=== PATIENT | female | born 1950 | race Caucasian/White ===

== ENCOUNTER 2019-02-10 08:35 | Inpatient (IN) | payer BC ==
[~2019-02-10] VITALS: Ht 154.9 cm; Wt 35.8 kg
[~2019-02-10 08:35] MED LIST: ALBU90OI INH; AZIT250 PO; COMBIVENT RESPIM4 GM IH; DULERA 100 MCG/13 GM INH; HYDACE10B PO; NAPR500 PO; PRED10 PO; TIOT18 INH
[2019-02-10 09:20] LABS: BASOPHILS ABSOLUTE AUTO 0.08 K/mm3 (0.00-0.23); BASOPHILS PERCENT AUTO 0 % (0-2); EOSINOPHILS PERCENT AUTO 0 % (0-6); Hematocrit 40.1 % (33.0-51.0); Hemoglobin 13.7 g/dL (11.5-16.0); IMMATURE GRAN ABSOLUTE AUTO 0.09 K/mm3 (0.00-0.10); IMMATURE GRAN PERCENT AUTO 1 % (0-1); LYMPHOCYTES ABSOLUTE AUTO 0.96 K/mm3 (0.84-5.20); LYMPHOCYTES PERCENT AUTO 5 % (21-46); MONOCYTES ABSOLUTE AUTO 2.27 K/mm3 (0.16-1.47); MONOCYTES PERCENT AUTO 13 % (4-13); Mean Corpuscular HGB 33.7 pg (26.0-34.0); Mean Corpuscular HGB Conc 34.2 g/dL (31.5-36.5); Mean Corpuscular Volume 99 fL (80-100); Mean Platelet Volume 9.1 fL (9.1-12.4); NEUTROPHILS ABSOLUTE AUTO 14.52 K/mm3 (1.96-9.15); NEUTROPHILS PERCENT AUTO 81 % (41-73); Platelet Count 330 K/mm3 (150-400); RDW Coefficient Variation 13.1 % (11.7-14.2); RDW Standard Deviation 47.8 fL (35.1-46.3); Red Blood Cell Count 4.06 M/mm3 (3.80-5.20); White Blood Cell Count 17.92 K/mm3 (4.00-11.30)
[2019-02-10 09:44] LABS: Alanine Aminotransfer (ALT/SGP 106 U/L (12-78); Albumin/Globulin Ratio 0.7 (0.8-1.8); Alk Phos 190 U/L (50-136); Anion Gap 7 mmol/L (6-16); Aspartate Aminotrans (AST/SGOT 61 U/L (12-37); Bilirubin, Total 0.7 mg/dL (0.1-1.0); Blood Urea Nitrogen 23 mg/dL (8-24); Bun/Creatinine Ratio 40.1 (12.0-20.0); CO2, Blood 30 mmol/L (21-32); Calcium, Blood 9.2 mg/dL (8.5-10.1); Chloride, Blood 103 mmol/L (98-108); Creatinine, Blood 0.57 mg/dL (0.40-1.00); Globulin, Blood 4.3 g/dL (2.2-4.0); Glomerular Filtration Rate >60 (60-); Glucose, Blood 101 mg/dL (70-99); Potassium, Blood 4.1 mmol/L (3.5-5.5); Sodium, Blood 140 mmol/L (136-145); Total Protein, Blood 7.3 g/dL (6.4-8.2)
[2019-02-10 10:45] LABS: Influenza A Negative (NEGATIVE); Influenza B Negative (NEGATIVE)
[2019-02-10] MEDS ORDERED: PROBIOTIC1 EAC4 PO (10:47)
[2019-02-10] MEDS ORDERED: BUDE6HFA INH (11:43)
[2019-02-10] MEDS ORDERED: SPIRIVA RESPIMAT4 GM INH (11:43)
--- NOTE | 2019-02-10 13:03 | NUR ---
RECIEVED REPORT FROM KRIS ABEL RN, AT 1200. PATIENT ARRIVED TO ROOM 335 AT 1216 VIA STRETCHER AND TRANSFERED INDEPENDENTLY TO HOSPITAL BED. ADMISSION ASSESSMENT AND H&P COMPLETED WITH THE ASSISTANCE OF THE PATIENT; MED REC ALSO COMPLETED.
--- NOTE | 2019-02-10 16:13 | NUR ---
SHIFT SUMMARY THE PATIENT HAS BEEN PLEASANT AND COOPERATIVE WITH STAFF SINCE ADMISSION TO THE FLOOR. DENIES PAIN. HR HAS COME DOWN FROM THE 100's TO THE 70's SINCE ADMIT, THE PATIENTS VITALS ARE OTHERWISE STABLE, NOTING A LOW-GRADE FEVER OF 99.8*. THERE HAVE BEEN NO ACUTE CHANGES NOTED OR REPORTED ON THIS SHIFT. WILL CONTINUE TO MONITOR AND PROVIDE CARE NEEDED.
--- NOTE | 2019-02-10 17:22 | NUR ---
PATIENTS HR IN THE 160's PER FLOOR AND WALL APPLIER LIQUID. ENCOURAGED PATIENT TO TAKE THE METOPROLOL SHE REFUSED UPON ADMIT AND SHE DID. WILL REASSESS PATIENT IN A LITTLE BIT. UPDATED ESE BOWER RN, ON PATIENT STATUS.
--- NOTE | 2019-02-10 20:14 | NUR ---
CALLED DR. FARNSWORTH TO VERIFY EARLY ADMINISTRATION OF 2ND DOSE OF METOPROLOL, PT'S HR PER TELE WAS IN THE 150'S. RECEIVED ORDER TO GIVE 2ND DOSE OF MED.
--- NOTE | 2019-02-10 22:57 | NUR ---
PT. TRANSERRED TO ICU 16 WITH A PCU STATUS. REPORT GIVEN TO MIKHAIL COOPER RN. PT. TRANSPORTED VIA BED BY NURSING STAFF.
--- NOTE | 2019-02-10 22:58 | NUR ---
@3320- RECEIVED CALL FROM TELE INFORMED PT. IN AFIB. NOTIFIED DR. FARNSWORTH PT. WITH NEW ONSET AFIB AND HR AT 125. RECEIVED ORDER FOR TX TO PCU.
--- NOTE | 2019-02-10 23:45 | NUR ---
PT TRANSFERED TO ICU PCU STATUS FOR CARDIZEM GTT. PT TRANSFERED TO BED WO DIFF. PT REQ 4L O2 BY NC W SAT 96%. NPC. MONITOR SHOWS AFIB W RATE 150'S, CARDIZEM STARTED AT 10MG/HR. PT WAS ASSITED TO TOILET TO VOID CL YELLOW, TOLERATED WELL. DISCUSSED W PT AFIB, POTENTIAL FOR BLOOD CLOTS, PT EARLIER REFUSED LOVENOX, BUT AGREES TO TAKE NOW. ORIENTED TO ROOM, CALL LIGHT IN REACH.
--- NOTE | 2019-02-11 03:10 | NUR ---
CARDIZEM WAS TITRATED TO 15MG/HR, SEE FLOW SHEET; NOW HAS BEEN TITRATED TO OFF. PT HAS CONVERTED TO SR AFTER SHORT PERIOD OF ACCELERATED JUNCTIONAL RHYTHM. RESTING QUIETLY AT THIS TIME.
[2019-02-11 03:32] LABS: Hemoglobin 13.2 g/dL (11.5-16.0); LYMPHOCYTES PERCENT AUTO 4 % (21-46); MONOCYTES ABSOLUTE AUTO 1.85 K/mm3 (0.16-1.47); MONOCYTES PERCENT AUTO 9 % (4-13); Mean Corpuscular HGB 32.9 pg (26.0-34.0); Mean Corpuscular Volume 100 fL (80-100); Mean Platelet Volume 9.2 fL (9.1-12.4); Platelet Count 333 K/mm3 (150-400); RDW Coefficient Variation 13.2 % (11.7-14.2); RDW Standard Deviation 49.4 fL (35.1-46.3); Red Blood Cell Count 4.01 M/mm3 (3.80-5.20); White Blood Cell Count 21.01 K/mm3 (4.00-11.30)
[2019-02-11 03:37] LABS: BASOPHILS ABSOLUTE AUTO 0.01 K/mm3 (0.00-0.23); BASOPHILS PERCENT AUTO 0 % (0-2); EOSINOPHILS PERCENT AUTO 0 % (0-6); IMMATURE GRAN PERCENT AUTO 1 % (0-1); NEUTROPHILS ABSOLUTE AUTO 18.25 K/mm3 (1.96-9.15); NEUTROPHILS PERCENT AUTO 87 % (41-73)
[2019-02-11 03:47] LABS: Anion Gap 5 mmol/L (6-16); Blood Urea Nitrogen 27 mg/dL (8-24); CO2, Blood 28 mmol/L (21-32); Calcium, Blood 8.5 mg/dL (8.5-10.1); Chloride, Blood 106 mmol/L (98-108); Creatinine, Blood 0.58 mg/dL (0.40-1.00); Glomerular Filtration Rate >60 (60-); Glucose, Blood 141 mg/dL (70-99); Magnesium, Blood 1.9 mg/dL (1.6-2.4); Potassium, Blood 4.8 mmol/L (3.5-5.5); Sodium, Blood 139 mmol/L (136-145)
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
--- NOTE | 2019-02-11 10:34 | NUR ---
CARE ASSUMED CARE ASSUMED AT 0700. REPORT RECEIVED FROM THAO ELIZONDO. BEDSIDE ROUNDING COMPLETE. PT ALERT, ORIENTED AND CALM. MORNING MEDICATIONS GIVEN. PT PARTICIPATING IN EDUCATION AND AGREEABLE TO PLAN OF CARE. LUNGS SOUND WHEEZY THROUGHOUT. TITRATING OXYGEN DOWN FROM 4 LPM NASAL CANNULA WITHOUT EPISODES OF DESATURATIONS. PT IN NORMAL SINUS RHYTHM, BP STABLE. DILTIAZEM OFF. PT UP AND DOWN TO BATHROOM WITH STAND BY ASSIST FOR LINE CONTROL AND TOLERATING WITHOUT DIZZINESS OR CHEST PAIN. PT CALLING APPROPRIATELY FOR NEEDS.
--- NOTE | 2019-02-11 12:56 | NUR ---
UPDATE DR. BOOTHE TO BEDSIDE FOR ASSESSMENT. UPDATED ON PT'S HEART RHYTHM AND OXYGEN TITRATION. DISCUSSED NICOTINE PATCH FOR SMOKING CESSATION. DISCUSSED POSSIBLE ECHO AND THE POTENTIAL NEED FOR ANTICOAGULATION. ORDERS RECEIVED FROM DR. BOOTHE. PT CHANGED TO MEDICAL FLOOR STATUS WITH TELEMETRY. PT UPDATED AND AGREEABLE.
--- NOTE | 2019-02-11 17:00 | NUR ---
TRANSFER NOTIFIED BY SYSTEM PROGRAMMER THAT PT IS TO TRANSFER TO ROOM 331. PT UPDATED AND AGREEABLE. THAO BANDA ON MEDICAL FLOOR CALLED AND WILL RETURN PHONE CALL WHEN AVAILABLE.
--- NOTE | 2019-02-11 17:17 | NUR ---
REPORT TO THAO BANDA
--- NOTE | 2019-02-11 17:21 | NUR ---
Echocardiogram completed.
--- NOTE | 2019-02-11 17:29 | NUR ---
PT. TRANSFERRED TO FIRST FLOOR FOR HIS RIDE.
--- NOTE | 2019-02-11 17:36 | NUR ---
TRANSFER PT TRANSFERRED FROM ICU TO MEDICAL FLOOR BY ONIEL SPENCER. VITALS STABLE. PT DENIES PAIN/DISCOMFORT. PT ON 1 LPM NASAL CANNULA. PT ABLE TO STAND AND TRANSFER TO WHEELCHAIR FOR TRASPORTATION.
[2019-02-11 18:53] LABS: Adenovirus Not Detected (NOT DETECT); Coronavirus 229E Not Detected (NOT DETECT); Coronavirus HKU1 Not Detected (NOT DETECT)
[2019-02-11 18:54] LABS: Bordetella pertussis Not Detected (NOT DETECT); Chlamydophila pneumoniae Not Detected (NOT DETECT); Coronavirus NL63 Not Detected (NOT DETECT); Coronavirus OC43 Not Detected (NOT DETECT); Human Metapneumovirus Not Detected (NOT DETECT); Human Rhinovirus/Enterovirus Not Detected (NOT DETECT); Influenza A Not Detected (NOT DETECT); Influenza A/2009-H1 Not Detected (NOT DETECT); Influenza A/H1 Not Detected (NOT DETECT); Influenza A/H3 Not Detected (NOT DETECT); Influenza B Not Detected (NOT DETECT); Mycoplasma pneumoniae Not Detected (NOT DETECT); Parainfluenza Virus 1 Not Detected (NOT DETECT); Parainfluenza Virus 2 Not Detected (NOT DETECT); Parainfluenza Virus 3 Not Detected (NOT DETECT); Parainfluenza Virus 4 Not Detected (NOT DETECT); Respiratory Syncytial Virus Not Detected (NOT DETECT)
--- NOTE | 2019-02-12 04:43 | NUR ---
SHIFT SUMMARY- NO ACUTE EVENTS OVERNIGHT. PT. ASLEEP T/O MOST OF THE NIGHT WITH OCCASIONAL COUGHING SPASMS. RECEIVNG BREATHING TX'S BY RT. PT. INDEPENDENT IN ROOM, BUT SOB W/EXERTION. PT. SR ON TELE, DENIED ANY PAIN OR DISCOMFORT DURING THE NIGHT. CALL LIGHT WITHIN REACH AND SIDE RAILS UP X2. WILL CONT TO MONITOR.
[2019-02-12 05:28] LABS: Anion Gap 3 mmol/L (6-16); Blood Urea Nitrogen 34 mg/dL (8-24); Bun/Creatinine Ratio 62.8 (12.0-20.0); CO2, Blood 30 mmol/L (21-32); Calcium, Blood 8.8 mg/dL (8.5-10.1); Chloride, Blood 108 mmol/L (98-108); Creatinine, Blood 0.54 mg/dL (0.40-1.00); Glomerular Filtration Rate >60 (60-); Glucose, Blood 112 mg/dL (70-99); Potassium, Blood 4.7 mmol/L (3.5-5.5); Sodium, Blood 141 mmol/L (136-145)
[2019-02-12 05:31] LABS: Thyroid Stimulating Hormone 0.904 uIU/mL (0.360-4.800)
--- NOTE | 2019-02-12 19:06 | NUR ---
PT. SITTING IN BBED WATCHING TV DENIES NEED OF ANYTHING. STATES"I,M SO BORED". PT. HAD A SHOWER TODAY. A&O STEADY ON FEET. INDICATED HE WOULD PROBABLY KEEP HER ONE MORE DAY. PT. STILL HAVING THE CIGARETTE COUGH FROM NOT SMOKING FOR SEVERAL DAYS.
[2019-02-13 05:16] LABS: BASOPHILS PERCENT AUTO 1 % (0-2); EOSINOPHILS ABSOLUTE AUTO 0.02 K/mm3 (0.00-0.68); EOSINOPHILS PERCENT AUTO 0 % (0-6); Hematocrit 37.1 % (33.0-51.0); Hemoglobin 12.3 g/dL (11.5-16.0); IMMATURE GRAN ABSOLUTE AUTO 0.48 K/mm3 (0.00-0.10); IMMATURE GRAN PERCENT AUTO 3 % (0-1); LYMPHOCYTES ABSOLUTE AUTO 1.54 K/mm3 (0.84-5.20); LYMPHOCYTES PERCENT AUTO 8 % (21-46); MONOCYTES ABSOLUTE AUTO 2.03 K/mm3 (0.16-1.47); MONOCYTES PERCENT AUTO 10 % (4-13); Mean Corpuscular HGB 32.9 pg (26.0-34.0); Mean Corpuscular HGB Conc 33.2 g/dL (31.5-36.5); Mean Corpuscular Volume 99 fL (80-100); Mean Platelet Volume 9.1 fL (9.1-12.4); NEUTROPHILS ABSOLUTE AUTO 15.28 K/mm3 (1.96-9.15); NEUTROPHILS PERCENT AUTO 79 % (41-73); Platelet Count 401 K/mm3 (150-400); RDW Standard Deviation 47.7 fL (35.1-46.3); Red Blood Cell Count 3.74 M/mm3 (3.80-5.20); White Blood Cell Count 19.45 K/mm3 (4.00-11.30)
[2019-02-13 06:28] LABS: Anion Gap 5 mmol/L (6-16); Blood Urea Nitrogen 23 mg/dL (8-24); Bun/Creatinine Ratio 51.7 (12.0-20.0); CO2, Blood 31 mmol/L (21-32); Calcium, Blood 8.7 mg/dL (8.5-10.1); Chloride, Blood 107 mmol/L (98-108); Creatinine, Blood 0.45 mg/dL (0.40-1.00); Glomerular Filtration Rate >60 (60-); Glucose, Blood 93 mg/dL (70-99); Potassium, Blood 3.9 mmol/L (3.5-5.5); Sodium, Blood 143 mmol/L (136-145)
--- NOTE | 2019-02-13 06:36 | NUR ---
SHIFT SUMMARY PATIENT ALERT AND ORIENTED. VERY PLEASANT TO WORK WITH OVERNIGHT. SHE SLEPT THE ENTIRE NIGHT AND HAD VERY MINIMAL NEEDS. IV PATENT AND FLUSHED. BED IN LOWEST POSITION WITH WHEELS LOCKED. CALL LIGHT WITHIN REACH. REPORT GIVEN TO ONCOMING RN.
--- NOTE | 2019-02-13 18:29 | NUR ---
PT. SITTING ON EDGE OF BED, MOUTH MOISTURIZER GIVEN FOR SORES ON MOUTH. ORDERED LASIX BID TODAY, PT. NOT HAPPY ABOUT HAVING LASIX IN THE EVENING. PT. STILL RUNNING LOW GRADE TEMP.
--- NOTE | 2019-02-14 04:43 | NUR ---
SHIFT SUMMARY PT HAD NO ISSUES NOTED. PT HAS BEEN SLEEPING WELL T/O SHIFT. PT CURRENTLY SLEEPING AND BREATHING EASY. CALL LIGHT IN REACH.
--- NOTE | 2019-02-14 17:26 | NUR ---
PT AOX4 AND COOPERATIVE OF CARE. PT DENIES PAIN AT THIS TIME. NO EXTRA BREATHNIG TREATMENTS HAVE BEEN REQUESTED. PT TOOK A WALK IN THE [place] WITH DR BOOTHE ON RA AND STILL GETS DOWN TO 86%. DR BOOTHE STATED SHE JUST NEEDS A COUPLE MORE DAYS. PT STILL HAS A COUGH, BUT IT SEEMS TOLERABLE AT THIS TIME. PT INDEPENDENT IN ROOM AND CALL LIGHT WITHIN REACH. WILL CONTINUE TO MONITOR.
[2019-02-15 05:08] LABS: BASOPHILS ABSOLUTE AUTO 0.08 K/mm3 (0.00-0.23); BASOPHILS PERCENT AUTO 1 % (0-2); EOSINOPHILS PERCENT AUTO 1 % (0-6); Hematocrit 36.5 % (33.0-51.0); Hemoglobin 12.3 g/dL (11.5-16.0); IMMATURE GRAN ABSOLUTE AUTO 0.58 K/mm3 (0.00-0.10); IMMATURE GRAN PERCENT AUTO 4 % (0-1); LYMPHOCYTES ABSOLUTE AUTO 1.78 K/mm3 (0.84-5.20); LYMPHOCYTES PERCENT AUTO 11 % (21-46); MONOCYTES ABSOLUTE AUTO 1.33 K/mm3 (0.16-1.47); MONOCYTES PERCENT AUTO 8 % (4-13); Mean Corpuscular HGB 33.1 pg (26.0-34.0); Mean Corpuscular HGB Conc 33.7 g/dL (31.5-36.5); Mean Corpuscular Volume 98 fL (80-100); Mean Platelet Volume 8.9 fL (9.1-12.4); NEUTROPHILS ABSOLUTE AUTO 12.94 K/mm3 (1.96-9.15); NEUTROPHILS PERCENT AUTO 77 % (41-73); Platelet Count 439 K/mm3 (150-400); RDW Coefficient Variation 12.7 % (11.7-14.2); RDW Standard Deviation 45.8 fL (35.1-46.3); Red Blood Cell Count 3.72 M/mm3 (3.80-5.20); White Blood Cell Count 16.81 K/mm3 (4.00-11.30)
[2019-02-15 05:39] LABS: Anion Gap 3 mmol/L (6-16); Blood Urea Nitrogen 20 mg/dL (8-24); Bun/Creatinine Ratio 43.4 (12.0-20.0); CO2, Blood 35 mmol/L (21-32); Calcium, Blood 8.5 mg/dL (8.5-10.1); Chloride, Blood 102 mmol/L (98-108); Creatinine, Blood 0.46 mg/dL (0.40-1.00); Glomerular Filtration Rate >60 (60-); Glucose, Blood 89 mg/dL (70-99); Potassium, Blood 3.7 mmol/L (3.5-5.5); Sodium, Blood 140 mmol/L (136-145)
--- NOTE | 2019-02-15 05:56 | NUR ---
SHIFT SUMMARY NO ACUTE CHANGES THIS SHIFT. AOX4. VSS. DECREASED O2 TO 1L VIA NC; SPO2 @92%; E/U RESPIRATIONS; DENIES DYSPNEA; LUNGS SOUND DIMINISHED T/O. STATES "I JUST WANT TO GO HOME". DENIES PAIN, N/V. INDEPENDENT IN ROOM. CALL LIGHT IN REACH & I WCTM UNTIL DAY RN ASSUMES CARE.
--- NOTE | 2019-02-15 19:08 | NUR ---
SHIFT SUMMARY TERRY IS INDEPENDENT IN THE ROOM, ON 1L OXYGEN. PT DENIES PAIN, MAINTAINING 2L FREE WATER RESTRICTION. PT EAGER TO GO HOME SOON SHE CAN. CALL BRANDEE IN REACH, MARYTM
[2019-02-16 05:23] LABS: BASOPHILS ABSOLUTE AUTO 0.05 K/mm3 (0.00-0.23); BASOPHILS PERCENT AUTO 0 % (0-2); EOSINOPHILS ABSOLUTE AUTO 0.13 K/mm3 (0.00-0.68); EOSINOPHILS PERCENT AUTO 1 % (0-6); Hemoglobin 12.2 g/dL (11.5-16.0); IMMATURE GRAN ABSOLUTE AUTO 0.43 K/mm3 (0.00-0.10); IMMATURE GRAN PERCENT AUTO 3 % (0-1); LYMPHOCYTES ABSOLUTE AUTO 1.57 K/mm3 (0.84-5.20); LYMPHOCYTES PERCENT AUTO 11 % (21-46); MONOCYTES ABSOLUTE AUTO 1.26 K/mm3 (0.16-1.47); MONOCYTES PERCENT AUTO 9 % (4-13); Mean Corpuscular HGB 32.2 pg (26.0-34.0); Mean Corpuscular Volume 98 fL (80-100); Mean Platelet Volume 8.6 fL (9.1-12.4); NEUTROPHILS ABSOLUTE AUTO 10.47 K/mm3 (1.96-9.15); NEUTROPHILS PERCENT AUTO 75 % (41-73); Platelet Count 473 K/mm3 (150-400); RDW Coefficient Variation 12.5 % (11.7-14.2); RDW Standard Deviation 45.1 fL (35.1-46.3); Red Blood Cell Count 3.79 M/mm3 (3.80-5.20); White Blood Cell Count 13.91 K/mm3 (4.00-11.30)
--- NOTE | 2019-02-16 05:28 | NUR ---
SHIFT SUMMARY NO ACUTE CHANGES THIS SHIFT. AOX4. VSS. SLEPT WELL. DENIES PAIN, SOB OR N/V. SPO2 @90% ON 1L. E/U RESPIRATIONS. LUNGS SOUND DIMINISHED IN BASES & CLEAR IN UPPER LOBES. CALL LIGHT IN REACH & I WILL CONTINUE TO MONITOR UNTIL DAY SHIFT RN ASSUMES CARE.
[2019-02-16 05:59] LABS: Albumin, Blood 2.3 g/dL (3.4-5.0); Anion Gap 2 mmol/L (6-16); Blood Urea Nitrogen 18 mg/dL (8-24); Bun/Creatinine Ratio 35.3 (12.0-20.0); CO2, Blood 36 mmol/L (21-32); Calcium, Blood 8.6 mg/dL (8.5-10.1); Chloride, Blood 103 mmol/L (98-108); Creatinine, Blood 0.51 mg/dL (0.40-1.00); Glomerular Filtration Rate >60 (60-); Glucose, Blood 89 mg/dL (70-99); Phosphorus, Blood 2.9 mg/dL (2.5-4.9); Potassium, Blood 3.8 mmol/L (3.5-5.5); Sodium, Blood 141 mmol/L (136-145)
[2019-02-16] MEDS ORDERED: Nicoderm Cq1 EAC1 TOP (10:57)
[2019-02-16] MEDS ORDERED: Prednisone10 MG PO (10:58)
[2019-02-16] MEDS ORDERED: LEVFLO500 PO (10:59)
[2019-02-16] MEDS ORDERED: METO25 PO (11:12)
--- NOTE | 2019-02-16 12:44 | NUR ---
PT DISCHARGED THE PT VERBALIZED UNDERSTANDING OF THE DC INSTRUCTIONS, PRESCRIPTIONS FAXED TO [facility] REQUESTED, THE PT WAS REMINDED TO CALL FOR FOLLOW UP APPOINTMENTS ON SUNDAY, THE PT APPEARED TO BE BREATHING ON RA AT THE TIME OF DC, THE PT HAD A HOME O2 EVAL AND DID NOT NEED OXYGEN, PT TRANSFERED VIA WHEELCHAIR ACCOMPANIED BY ESCORT AND HER SO
== END 2019-02-16 12:37 | disposition home or self-care (01) | DRG 871 ==
LOC: ER 08:35 → MEDS 11:12 → ICUW 22:26 → MEDS 02-11 17:37 → ENPENDDIS 02-16 09:48 → MEDS 02-16 12:37
PROVIDERS: Emergency Medicine; Family Medicine; ADMIT Hospitalist
DX: A41.9 Sepsis, unspecified organism (principal); J18.9 Pneumonia, unspecified organism; E43 Unspecified severe protein-calorie malnutrition; J96.01 Acute respiratory failure with hypoxia; Z68.1 Body mass index [BMI] 19.9 or less, adult; J44.1 Chronic obstructive pulmonary disease with (acute) exacerbation; J44.0 Chronic obstructive pulmonary disease with (acute) lower respiratory infection; I47.1 Supraventricular tachycardia; K74.60 Unspecified cirrhosis of liver; Z87.891 Personal history of nicotine dependence; D47.3 Essential (hemorrhagic) thrombocythemia
CPT/HCPCS: 0099U; 36415; 71046; 80048; 80053; 80069; 83605; 83735; 83880; 84443; 84484; 85025; 87040; 87449; 87804; 90686; 93005; 93010; 93306; 94640; 94644; 94667; 94760; 96361; 96365; 96367; 96375; 99285-25; G0008; J0456; J0696; J1650; J1940; J2930; J7030; J7040; J7050; J7512

== ENCOUNTER → 2021-12-07 | Outpatient (CLI) | payer BC ==
[~2021-12-07] MED LIST changes: +BUDE6HFA INH; +LEVFLO500 PO; +METO25 PO; +Nicoderm Cq1 EAC1 TOP; +PROBIOTIC1 EAC4 PO; +Prednisone10 MG PO; +SPIRIVA RESPIMAT4 GM INH
== END ==
LOC: PLD 13:35 → LAB SHORT 13:35
DX: R21 Rash and other nonspecific skin eruption (principal)
CPT/HCPCS: 88312

== ENCOUNTER 2022-04-29 18:11 | Emergency (ER) | payer OTHER, BC ==
[~2022-04-29] VITALS: Ht 154.9 cm; Wt 49.0 kg
[2022-04-29] MEDS ORDERED: Norco 5-325 Ta1 EACH PO (21:03)
== END 2022-04-29 21:25 | disposition home or self-care (01) ==
LOC: ER 18:11
DX: S52.572A Other intraarticular fracture of lower end of left radius, initial encounter for closed fracture (principal); S52.692A Other fracture of lower end of left ulna, initial encounter for closed fracture; W01.0XXA Fall on same level from slipping, tripping and stumbling without subsequent striking against object, initial encounter; J44.9 Chronic obstructive pulmonary disease, unspecified; Z79.899 Other long term (current) drug therapy; Z87.891 Personal history of nicotine dependence
CPT/HCPCS: 73110; A9270; J2270; J2405; J3010